=== PATIENT | female | born 1990 ===

== ENCOUNTER 2016-12-07 16:24 | Emergency (ER) | payer MEDICAID ==
[2016-12-07 17:03] VITALS: BP 128/68; PULSE 106; RESP 16; TEMP 98.4; O2SAT 97
--- NOTE | 2016-12-07 17:13 | ED PDOC ---
HPI: Abdomen Time Seen by Provider: 12/07/16 16:46 Chief Complaint (Nursing): GI Problem Chief Complaint (Provider): nausea History Per: Patient Additional Complaint(s): pt c/o nausea in the mornings for the past week. denies associated fevers, cp, sob, abd pain, v/d, urinary c/o. LMP last week was lite, previous LMP was last month. previously . Past Medical History Reviewed: Historical Data, Nursing Documentation, Vital Signs Vital Signs: Last Vital Signs Temp 98.4 F 12/07/16 16:59 Pulse 106 H 12/07/16 16:59 Resp 16 12/07/16 16:59 BP 128/68 12/07/16 16:59 Pulse Ox 97 12/07/16 16:59 - Medical History PMH: Asthma - Family History Family History: States: No Known Family Hx - Social History Current smoker - smoking cessation education provided: No Alcohol: Social Drugs: Denies - Home Medications Home Medications: Ambulatory Orders Medication Instructions Recorded Cetirizine HCl [Zyrtec] 10 mg PO DAILY PRN #30 capsule 04/26/16 Fluticasone Propionate [Flonase] 2 spr AHMET DAILY #1 bottle 04/26/16 Promethazine DM [Phenergan DM 10 ml PO Q8 PRN #120 ml 04/26/16 Syrup] Doxylamine/Pyridoxine HCl (B6) 2 each PO QPM #60 tablet. 12/07/16 [Jeffrey Quesada 10-10 mg Tablet] Multivit/Folic Acid/I 1 tab PO DAILY #30 tab 12/07/16 [ Plus] - Allergies Allergies/Adverse Reactions: Allergies Allergy/AdvReac Type Severity Reaction Status Date / Time No Known Allergies Allergy Verified 02/24/16 15:19 Review of Systems ROS Statement: Except As Marked, All Systems Reviewed And Found Negative Gastrointestinal: Positive for: Nausea Physical Exam - Reviewed Nursing Documentation Reviewed: Yes Vital Signs Reviewed: Yes - Physical Exam Appears: Positive for: Well, Non-toxic, No Acute Distress Skin: Positive for: Normal Color, Warm, DRY Cardiovascular/Chest: Positive for: Regular Rate, Rhythm Respiratory: Positive for: CNT, Normal Breath Sounds Gastrointestinal/Abdominal: Positive for: Normal Exam, Bowel Sounds, Soft. Negative for: Tenderness Back: Negative for: L CVA Tenderness, R CVA Tenderness Neurologic/Psych: Positive for: Alert, Oriented - ECG O2 Sat by Pulse Oximetry: 97 Medical Decision Making Medical Decision Making: preg pos. will give jeffrey prenatals to f/u pmd. Disposition - Clinical Impression Clinical Impression: - Patient ED Disposition Is Patient to be Admitted: No - Disposition Referrals: [facility] [Outside] Disposition: Routine/Home Disposition Time: 17:11 Condition: GOOD Prescriptions: Doxylamine/Pyridoxine HCl (B6) [Jeffrey Quesada 10-10 mg Tablet] 2 each PO QPM #60 tablet. Multivit/Folic Acid/I [ Plus] 1 tab PO DAILY #30 tab Instructions: (ED)
== END 2016-12-07 17:41 | disposition home or self-care (01) ==
LOC: SUPCPDRO 16:24 → H.ER 16:24
DX: O21.9 Vomiting of pregnancy, unspecified (principal)

== ENCOUNTER 2017-02-22 14:26 | Observation (INO) | payer MEDICAID ==
[2017-02-22] MEDS ORDERED: Sodium Chloride 0.9% 1,000 ML IV SCH (15:15)
--- NOTE | 2017-02-22 15:40 | ED PDOC ---
HPI: Abdomen <Suze Soni - Last Filed: 02/22/17 18:31> Chief Complaint (Provider): abdominal pain History Per: Patient Onset/Duration Of Symptoms: Hrs (3) Outside of [place] travel?: No Current Symptoms Are (Timing): Better Severity: Moderate Pain Scale Rating Of: 6 (8/10 prior to coming to ED) Location Of Pain/Discomfort: Diffuse, RLQ, Epigastric Quality Of Discomfort: Sharp Associated Symptoms: Back Pain. denies: Fever, Chills, Nausea, Vomiting, Diarrhea, Urinary Symptoms Exacerbating Factors: None Alleviating Factors: None Abnormal Vaginal Bleeding: No Last Menstral Period: 10/26/16 : 2 Para: 1 () Miscarriage: 0 <Isela Garcia - Last Filed: 02/22/17 18:51> Time Seen by Provider: 02/22/17 14:35 Chief Complaint (Nursing): Abdominal Pain Additional Complaint(s): Pt is 26 yo F with PMH asthma who presents today to the ED due to abdominal pain x3 hours. She is 17w0d by LMP, which was 10/26/16, she is currently . Pt denies vaginal bleeding, cramping, contractions. She reports no change in movement, states she feels fetus moving/kicking. Denies nausea, vomiting, diarrhea, changes in diet, or urinary symptoms. States the pain is 6/10 currently, was at 8/10 before and is diffuse across abdomen, with the worst pain at RLQ, states pain radiates to the side and back. Denies issues with previous or with this . (Isela Garcia) Past Medical History <Suze Soni - Last Filed: 02/22/17 18:31> - Medical History PMH: Asthma Denies: Chronic Kidney Disease - Surgical History Surgical History: No Surg Hx - Family History Family History: States: No Known Family Hx - Social History Ex-Smoker (has not smoked in the last 12 months): Yes (social) Alcohol: None Drugs: Denies <Isela Garcia - Last Filed: 02/22/17 18:51> Vital Signs: Last Vital Signs Temp 98.0 F 02/22/17 17:25 Pulse 89 02/22/17 17:25 Resp 18 02/22/17 17:25 BP 105/69 02/22/17 17:25 Pulse Ox 99 02/22/17 18:15 - Home Medications Home Medications: Ambulatory Orders Medication Instructions Recorded Cetirizine HCl [Zyrtec] 10 mg PO DAILY PRN #30 capsule 04/26/16 Fluticasone Propionate [Flonase] 2 spr AHMET DAILY #1 bottle 04/26/16 Promethazine DM [Phenergan DM 10 ml PO Q8 PRN #120 ml 04/26/16 Syrup] Doxylamine/Pyridoxine HCl (B6) 2 each PO QPM #60 tablet. 12/07/16 [Aaron Quesada 10-10 mg Tablet] Multivit/Folic Acid/I 1 tab PO DAILY #30 tab 12/07/16 [ Plus] - Allergies Allergies/Adverse Reactions: Allergies Allergy/AdvReac Type Severity Reaction Status Date / Time No Known Allergies Allergy Verified 02/24/16 15:19 Review of Systems ROS Statement: Except As Marked, All Systems Reviewed And Found Negative Cardiovascular: Positive for: Other (occasional heartburn) Gastrointestinal: Positive for: Abdominal Pain Neurological: Positive for: Dizziness (when standing up quickly, not persistent) <Isela Garcia - Last Filed: 02/22/17 18:51> Physical Exam - Physical Exam Appears: Positive for: Non-toxic, No Acute Distress Head Exam: Positive for: NORMAL INSPECTION Skin: Positive for: Warm, Dry Eye Exam: Positive for: Normal appearance, EOMI, Other (pt wearing contact lenses). Negative for: Conjunctival injection, Scleral icterus ENT: Negative for: Pharyngeal Erythema, Tonsillar Exudate Neck: Positive for: Painless ROM, Supple Cardiovascular/Chest: Positive for: Regular Rate, Rhythm. Negative for: Murmur Respiratory: Positive for: Normal Breath Sounds. Negative for: Wheezing, Respiratory Distress Gastrointestinal/Abdominal: Positive for: Bowel Sounds, Soft, Tenderness ( diffuse, more tenderness in RLQ) Back: Negative for: L CVA Tenderness, R CVA Tenderness Extremity: Positive for: Normal ROM. Negative for: Deformity Neurologic/Psych: Positive for: Alert, Oriented, Gait (normal) <Isela Garcia - Last Filed: 02/22/17 18:51> - Laboratory Results Result Diagrams: 02/22/17 15:40 08/26/17 15:40 <Suze Soni - Last Filed: 02/22/17 18:31> - Laboratory Results Result Diagrams: 02/22/17 15:40 02/22/17 15:40 - ECG O2 Sat by Pulse Oximetry: 99 <Isela Garcia - Last Filed: 02/22/17 18:51> Medical Decision Making <Suze Soni - Last Filed: 02/22/17 18:31> <Isela Garcia - Last Filed: 02/22/17 18:51> Medical Decision Makin.54p - case d/w Dr. Durant regarding US findings and concerns for early appendicitis. she will contact the cardiovascular surgical tech(s) come and see patient. 6.31p - patient seen by surgery resident. Will admit to surgery for observation. (Suze Soni) 15:00 Pt seen, examined, evaluated. -CBC -CMP -Urine dipstick -Urinalysis -NS 1L -Abdominal u/s ordered 17:45 Abdominal U/s LIVER: Measures 15.3 cm. Normal echogenicity of the liver parenchyma. No mass. No intrahepatic bile duct dilatation. GALLBLADDER: Unremarkable. No gallstones. COMMON BILE DUCT: Measures 5.0mm. No stones. No dilatation. PANCREAS: Unremarkable as visualized. No mass. No ductal dilatation. RIGHT KIDNEY: Measures 12.2cm. Normal echogenicity. No calculus, mass, or hydronephrosis. LEFT KIDNEY: Measures 12.0cm. Normal echogenicity. No calculus, mass, or hydronephrosis. SPLEEN: Normal in size and contour. No mass. AORTA: No aneurysmal dilatation. IVC: Unremarkable. OTHER FINDINGS: The right ovary is enlarged and measures 6.6 x 5.5 x 5.0 cm. There is a 4.0 x 4.0 x 4.7 cm right ovarian cyst. Also noted 1.7 x 2.0 x 2.1 cm echogenic area in the right ovary which likely represents a dermoid. The appendix is mildly distended and measures 9mm in transverse diameter. There is no evidence of fluid in right lower quadrant or abscess. IMPRESSION: 1. The appendix is prominent and measures 9 mm in transverse diameter. Findings could represent early acute appendicitis in appropriate clinical setting. No evidence of free fluid in the right lower quadrant. 2. 4.7 cm simple cyst in right ovary. ---- Call placed to general surgery. 18:30 General surg resident at bedside to evaluate pt. Will admit to general surgery service for observation and IV antibiotics. (Isela Garcia) Disposition - Patient ED Disposition Is Patient to be Admitted: Yes Doctor Will See Patient In The: Hospital - Disposition Disposition: Transfer of Care Disposition Time: 18:31 - Pt Status Changed To: Hospital Disposition Of: Observation - POA Present On Arrival: None <Suze Soni - Last Filed: 02/22/17 18:31> - Patient ED Disposition Is Patient to be Admitted: Yes - Disposition Disposition: Transfer of Care <Isela Garcia - Last Filed: 02/22/17 18:51> - Clinical Impression Clinical Impression: Abdominal pain - Disposition Condition: STABLE Forms: [facility] ([place])
[2017-02-22 15:50] LABS: BASO % 0.2 % (0.0-2.0); EOS # 0.2 K/uL (0.0-0.7); HEMATOCRIT 32.8 % (34.0-47.0); LYMPH # 1.5 K/uL (1.0-4.3); LYMPH % 16.6 % (20.0-40.0); MEAN CELL VOLUME 81.8 fl (81.0-99.0); MEAN CORPUSCULAR HEMOGLOBIN 26.9 pg (27.0-31.0); MEAN CORPUSCULAR HGB CONC 32.8 g/dL (33.0-37.0); MEAN PLATELET VOLUME 6.7 fl (7.2-11.7); MONO # 0.7 K/uL (0.0-0.8); MONO % 7.5 % (0.0-10.0); NEUT # 6.7 K/uL (1.8-7.0); NEUT % 73.7 % (50.0-75.0); RED CELL DISTRIBUTION WIDTH 17.6 % (11.5-14.5); URINE BACTERIA RARE (<OCC); URINE BILIRUBIN NEGATIVE (NEGATIVE); URINE BLOOD SMALL (NEGATIVE); URINE COLOR YELLOW (YELLOW); URINE GLUCOSE (UA) NEG (Normal); URINE KETONE NEGATIVE (NEGATIVE); URINE LEUKOCYTE ESTERASE NEG Leu/uL (Negative); URINE PROTEIN NEGATIVE (NEGATIVE); URINE UROBILINOGEN 0.2-1.0 mg/dL (0.2-1.0); WBC URINE 1 /hpf (0-5)
[2017-02-22 16:02] LABS: ALB/GLOB RATIO 1.1 (1.0-2.1); ALKALINE PHOSPHATASE 71 U/L (38-126); ALT/SGPT 19 U/L (9-52); AST/SGOT 18 U/L (14-36); BILIRUBIN,TOTAL 0.4 mg/dl (0.2-1.3); BLOOD UREA NITROGEN 6 mg/dl (7-17); CALCIUM 9.4 mg/dL (8.4-10.2); CARBON DIOXIDE 24 mmol/L (22-30); CHLORIDE 103 mmol/L (98-107); GFR AFRICAN-AMERICAN > 60; GLUCOSE,RANDOM 94 mg/dL (65-105); POTASSIUM 3.7 MMOL/L (3.6-5.0); SODIUM 136 mmol/l (132-148); TOTAL PROTEIN 7.3 G/DL (6.3-8.2)
[2017-02-22 16:05] LABS: RBC URINE 8 /hpf (0-3)
[2017-02-22 17:26] VITALS: RESP 18
--- NOTE | 2017-02-22 17:34 | US ---
HISTORY: 17w , abdominal pain COMPARISON: None. TECHNIQUE: Gaitan scale imaging was performed. FINDINGS: LIVER: Measures 15.3 cm. Normal echogenicity of the liver parenchyma. No mass. No intrahepatic bile duct dilatation. GALLBLADDER: Unremarkable. No gallstones. COMMON BILE DUCT: Measures 5.0 mm. No stones. No dilatation. PANCREAS: Unremarkable as visualized. No mass. No ductal dilatation. RIGHT KIDNEY: Measures 12.2cm. Normal echogenicity. No calculus, mass, or hydronephrosis. LEFT KIDNEY: Measures 12.0cm. Normal echogenicity. No calculus, mass, or hydronephrosis. SPLEEN: Normal in size and contour. No mass. AORTA: No aneurysmal dilatation. IVC: Unremarkable. OTHER FINDINGS: The right ovary is enlarged and measures 6.6 x 5.5 x 5.0 cm. There is a 4.0 x 4.0 x 4.7 cm right ovarian cyst. Also noted is 1.7 x 2.0 x 2.1 cm echogenic area in the right ovary which likely represents a dermoid. The appendix is mildly distended and measures 9 mm in transverse diameter. There is no evidence of fluid in the right lower quadrant or abscess. IMPRESSION: 1. The appendix is prominent and measures 9 mm in transverse diameter. Findings could represent early acute appendicitis in the appropriate clinical setting. No evidence of free fluid in the right lower quadrant or abscess. 2. 4.7 cm simple cyst in the right ovary. Important findings were discussed with Dr. Laguna in the ER on 02/22/2017 at 5:30 p.m.
--- NOTE | 2017-02-22 18:40 | CP.PCM.HP ---
History of Present Illness - History of Present Illness History of Present Illness: Surgery: Dr. Durant CC: Abd pain HPI: 26F 17 weeks w. pmh of asthma presents to ED w. acute onset abd pain beginning this afternoon. Pain was initially ilana-umbilical and migrated to RLQ as day progressed. Pain is constant, described as sharp, and waxes and wanes in severity. Pt denies any alleviating or aggravating factors. She denies F/C, no CEBALLOS/blurred vision, no CP/palpitations, no SOB/cough, no change in appetite, no N/V/D, no hematuria/dysuria, no change in urine color or odor, no vaginal bleeding or discharge. U/S done in ED showed dilated appendix of 9mm. PMH: asthma PSH: none Meds: none NKDA Social: No ETOH/tobacco/drugs Fhx: Non-contributory Present on Admission - Present on Admission Any Indicators Present on Admission: No Review of Systems - Review of Systems All systems: reviewed and no additional remarkable complaints except (HPI) Past Patient History - Infectious Disease Hx of Infectious Diseases: None - Past Social History Alcohol: None Drugs: Denies - CARDIAC Hx Cardiac Disorders: No - PULMONARY Hx Asthma: Yes - NEUROLOGICAL Hx Neurological Disorder: No - HEENT Hx HEENT Problems: No - RENAL Hx Chronic Kidney Disease: No - ENDOCRINE/METABOLIC Hx Endocrine Disorders: No - HEMATOLOGICAL/ONCOLOGICAL Hx Blood Disorders: No - INTEGUMENTARY Hx Dermatological Problems: No - MUSCULOSKELETAL/RHEUMATOLOGICAL Hx Musculoskeletal Disorders: No - GASTROINTESTINAL Hx Gastrointestinal Disorders: No - GENITOURINARY/GYNECOLOGICAL Hx Genitourinary Disorders: No Other/Comment: ovarian cyst - PSYCHIATRIC Hx Psychophysiologic Disorder: No Hx Substance Use: No - SURGICAL HISTORY Hx Surgeries: No - ANESTHESIA Hx Anesthesia: No Meds Allergies/Adverse Reactions: Allergies Allergy/AdvReac Type Severity Reaction Status Date / Time No Known Allergies Allergy Verified 02/24/16 15:19 Physical Exam - Constitutional Appears: Non-toxic, No Acute Distress - Head Exam Head Exam: ATRAUMATIC, NORMOCEPHALIC - Eye Exam Eye Exam: EOMI. absent: Scleral icterus - ENT Exam ENT Exam: Mucous Membranes Moist, Normal External Ear Exam - Neck Exam Neck exam: Positive for: Full Rom - Respiratory Exam Respiratory Exam: NORMAL BREATHING PATTERN. absent: Accessory Muscle Use, Respiratory Distress - Cardiovascular Exam Cardiovascular Exam: REGULAR RHYTHM - GI/Abdominal Exam GI & Abdominal Exam: Soft, Tenderness (RLQ). absent: Distended, Firm, Guarding , Rebound, Rigid Additional comments: No rovsing, no obturator/psoas sign - Extremities Exam Extremities exam: Negative for: calf tenderness, pedal edema - Back Exam Back exam: absent: CVA tenderness (L), CVA tenderness (R) - Neurological Exam Neurological exam: Alert, Oriented x3 - Psychiatric Exam Psychiatric exam: Normal Affect, Normal Mood - Skin Skin Exam: Dry, Normal Color, Warm Results - Vital Signs Recent Vital Signs: Last Vital Signs Temp 98.0 F 02/22/17 17:25 Pulse 89 02/22/17 17:25 Resp 18 02/22/17 17:25 BP 105/69 02/22/17 17:25 Pulse Ox 99 02/22/17 18:15 - Labs Result Diagrams: 02/22/17 15:40 02/22/17 15:40 Labs: Laboratory Results - last 24 hr 02/22/17 02/22/17 02/22/17 15:40 15:40 15:40 WBC 9.0 RBC 4.00 Hgb 10.8 L Hct 32.8 L MCV 81.8 MCH 26.9 L MCHC 32.8 L RDW 17.6 H Plt Count 312 MPV 6.7 L Neut % (Auto) 73.7 Lymph % (Auto) 16.6 L [place] % (Auto) 7.5 Eos % (Auto) 2.0 Baso % (Auto) 0.2 Neut # 6.7 Lymph # 1.5 [place] # 0.7 Eos # 0.2 Baso # 0.0 Sodium 136 Potassium 3.7 Chloride 103 Carbon Dioxide 24 Anion Gap 13 BUN 6 L Creatinine 0.5 L Est GFR ( Amer) > 60 Est GFR (Non-Af Amer) > 60 Random Glucose 94 Calcium 9.4 Total Bilirubin 0.4 AST 18 ALT 19 Alkaline Phosphatase 71 Total Protein 7.3 Albumin 3.9 Globulin 3.4 Albumin/Globulin Ratio 1.1 Urine Color Yellow Urine Clarity Slighty-cloudy Urine pH 5.0 Ur Specific [place] 1.029 Urine Protein Negative Urine Glucose (UA) Neg Urine Ketones Negative Urine Blood Small Urine Nitrate Negative Urine Bilirubin Negative Urine Urobilinogen 0.2-1.0 Ur Leukocyte Esterase Neg Urine RBC (Auto) 8 H Urine Microscopic WBC 1 Ur Squamous Epith Cells 3 Urine Bacteria Rare - Imaging and Cardiology US - abdomen Status: Image reviewed by me, Report reviewed by me Assessment & Plan - Assessment and Plan (Free Text) Assessment: 26F w. abd pain, R/O appendicitis -zosyn -IVF -tylenol/motrin for pain -regular diet, NPO after midnight -AM labs -serial abd exams -SCDs -d/w attending Zemaitis PGY3
[2017-02-22] MEDS: Sodium Chloride 0.9% 1,000 ML IV SCH (20:31)
[2017-02-22] MEDS: Piperacillin/Tazobact 3.375 GM in Sodium Chloride 0.9% 100 ML IVPB SCH (21:46)
[2017-02-23 03:56] VITALS: O2SAT 98
[2017-02-23] MEDS: Piperacillin/Tazobact 3.375 GM in Sodium Chloride 0.9% 100 ML IVPB SCH (04:02)
[2017-02-23] MEDS: Sodium Chloride 0.9% 1,000 ML IV SCH (04:04)
[2017-02-23 07:23] LABS: HEMATOCRIT 28.8 % (34.0-47.0); MEAN CELL VOLUME 81.2 fl (81.0-99.0); MEAN CORPUSCULAR HEMOGLOBIN 27.5 pg (27.0-31.0); MEAN CORPUSCULAR HGB CONC 33.9 g/dL (33.0-37.0); RED CELL DISTRIBUTION WIDTH 17.2 % (11.5-14.5); WHITE BLOOD COUNT 7.2 K/uL (4.8-10.8)
[2017-02-23 07:36] LABS: BLOOD UREA NITROGEN 5 mg/dl (7-17); CALCIUM 8.5 mg/dL (8.4-10.2); CARBON DIOXIDE 23 mmol/L (22-30); CHLORIDE 107 mmol/L (98-107); GFR AFRICAN-AMERICAN > 60; GLUCOSE,RANDOM 84 mg/dL (65-105); POTASSIUM 4.1 MMOL/L (3.6-5.0); SODIUM 138 mmol/l (132-148)
[2017-02-23 07:46] LABS: PARTIAL THROMBOPLASTIN TIME 29.1 Seconds (25.6-37.1)
--- NOTE | 2017-02-23 08:02 | CP.PCM.PN ---
Subjective - Date & Time of Evaluation Date of Evaluation: 02/23/17 Time of Evaluation: 07:59 - Subjective Subjective: Surgery: Dr. Durant Pt seen and examined. Resting comfortably in bed. RLQ significantly improved compared to yesterday. No F/C. No N/V/D. Pt would like to eat. Objective - Vital Signs/Intake and Output Vital Signs (last 24 hours): Temp Pulse Resp BP Pulse Ox 97.9 F 87 18 106/68 98 02/23/17 04:05 02/23/17 01:00 02/23/17 01:00 02/23/17 01:00 02/23/17 01:00 - Medications Medications: Current Medications Acetaminophen (Tylenol 325mg Tab) 650 mg PO Q6 PRN PRN Reason: Fever >100.4 F Sodium Chloride (Sodium Chloride 0.9%) 1,000 mls @ 1,000 mls/hr IV .Q1H [facility] Stop: 02/23/17 15:07 Last Admin: 02/22/17 15:42 Dose: 1,000 mls/hr Sodium Chloride (Sodium Chloride 0.9%) 1,000 mls @ 140 mls/hr IV .Q7H9M [facility] Stop: 02/23/17 18:48 Last Admin: 02/23/17 04:04 Dose: 140 mls/hr Piperacillin Sod/Tazobactam (Sod 3.375 gm/ Sodium Chloride) 100 mls @ 100 mls/ hr IVPB Q6 [facility] Last Admin: 02/23/17 04:02 Dose: 100 mls/hr Ibuprofen (Motrin Tab) 600 mg PO Q6 PRN PRN Reason: Pain, moderate (4-7) Ondansetron HCl (Zofran Inj) 4 mg IVP Q4 PRN PRN Reason: Nausea/Vomiting - Labs Labs: 02/23/17 05:30 02/23/17 05:30 PT 12.0 Seconds (9.8-13.1) 02/23/17 05:30 INR 1.2 (0.9-1.2) 02/23/17 05:30 APTT 29.1 Seconds (25.6-37.1) 02/23/17 05:30 - Constitutional Appears: Non-toxic, No Acute Distress - Head Exam Head Exam: ATRAUMATIC, NORMOCEPHALIC - Eye Exam Eye Exam: EOMI - ENT Exam ENT Exam: Mucous Membranes Moist - Neck Exam Neck Exam: Full ROM - Respiratory Exam Respiratory Exam: NORMAL BREATHING PATTERN. absent: Accessory Muscle Use, Respiratory Distress - GI/Abdominal Exam GI & Abdominal Exam: Soft, Tenderness (mild RLQ). absent: Distended, Firm, Guarding, Rigid, Rebound - Extremities Exam Extremities Exam: absent: Calf Tenderness, Pedal Edema - Neurological Exam Neurological Exam: Alert, Awake, Oriented x3 - Psychiatric Exam Psychiatric exam: Normal Affect, Normal Mood - Skin Skin Exam: Dry, Normal Color, Warm Assessment and Plan - Assessment and Plan (Free Text) Assessment: 26F w. abd pain r/o appendicitis -pain improved, wbc trending down -regular diet -pt is clear for D/C -Augmentin for 1 week -if symptoms worsen, pt is to return to ED -d/w attending Zemaitis PGY3
[2017-02-23 08:22] VITALS: BP 92/64; PULSE 90; TEMP 98.5
--- NOTE | 2017-02-23 09:41 | CP.PCM.DIS ---
Provider - Provider Date of Admission: 02/22/17 18:30 Attending physician: Luis Eduardo Durant MD Time Spent in preparation of Discharge (in minutes): 15 Diagnosis - Discharge Diagnosis (1) Abdominal pain Status: Acute Priority: High Onset Date: ~02/22/17 Comment: ultrasound indicates R ovarian cyst and prominence of appendix 9mm. (2) Status: Acute Priority: Medium Comment: 17 weeks by history Hospital Course - Lab Results Lab Results: Most Recent Lab Values WBC 7.2 K/uL (4.8-10.8) 02/23/17 05:30 RBC 3.54 Mil/uL (3.80-5.20) L 02/23/17 05:30 Hgb 9.8 g/dL (12.0-16.0) L 02/23/17 05:30 Hct 28.8 % (34.0-47.0) L 02/23/17 05:30 MCV 81.2 fl (81.0-99.0) 02/23/17 05:30 MCH 27.5 pg (27.0-31.0) 02/23/17 05:30 MCHC 33.9 g/dL (33.0-37.0) 02/23/17 05:30 RDW 17.2 % (11.5-14.5) H 02/23/17 05:30 Plt Count 260 K/uL (130-400) 02/23/17 05:30 MPV 6.7 fl (7.2-11.7) L 02/22/17 15:40 Neut % (Auto) 73.7 % (50.0-75.0) 02/22/17 15:40 Lymph % (Auto) 16.6 % (20.0-40.0) L 02/22/17 15:40 [place] % (Auto) 7.5 % (0.0-10.0) 02/22/17 15:40 Eos % (Auto) 2.0 % (0.0-4.0) 02/22/17 15:40 Baso % (Auto) 0.2 % (0.0-2.0) 02/22/17 15:40 Neut # 6.7 K/uL (1.8-7.0) 02/22/17 15:40 Lymph # 1.5 K/uL (1.0-4.3) 02/22/17 15:40 [place] # 0.7 K/uL (0.0-0.8) 02/22/17 15:40 Eos # 0.2 K/uL (0.0-0.7) 02/22/17 15:40 Baso # 0.0 K/uL (0.0-0.2) 02/22/17 15:40 PT 12.0 Seconds (9.8-13.1) 02/23/17 05:30 INR 1.2 (0.9-1.2) 02/23/17 05:30 APTT 29.1 Seconds (25.6-37.1) 02/23/17 05:30 Sodium 138 mmol/l (132-148) 02/23/17 05:30 Potassium 4.1 MMOL/L (3.6-5.0) 02/23/17 05:30 Chloride 107 mmol/L (98-107) 02/23/17 05:30 Carbon Dioxide 23 mmol/L (22-30) 02/23/17 05:30 Anion Gap 13 (10-20) 02/23/17 05:30 BUN 5 mg/dl (7-17) L 02/23/17 05:30 Creatinine 0.5 mg/dL (0.7-1.2) L 02/23/17 05:30 Est GFR ( Amer) > 60 02/23/17 05:30 Est GFR (Non-Af Amer) > 60 02/23/17 05:30 Random Glucose 84 mg/dL (65-105) 02/23/17 05:30 Calcium 8.5 mg/dL (8.4-10.2) 02/23/17 05:30 Total Bilirubin 0.4 mg/dl (0.2-1.3) 02/22/17 15:40 AST 18 U/L (14-36) 02/22/17 15:40 ALT 19 U/L (9-52) 02/22/17 15:40 Alkaline Phosphatase 71 U/L (38-126) 02/22/17 15:40 Total Protein 7.3 G/DL (6.3-8.2) 02/22/17 15:40 Albumin 3.9 g/dL (3.5-5.0) 02/22/17 15:40 Globulin 3.4 gm/dL (2.2-3.9) 02/22/17 15:40 Albumin/Globulin Ratio 1.1 (1.0-2.1) 02/22/17 15:40 Urine Color Yellow (YELLOW) 02/22/17 15:40 Urine Clarity Slighty-cloudy (Clear) 02/22/17 15:40 Urine pH 5.0 (5.0-8.0) 02/22/17 15:40 Ur Specific [place] 1.029 (1.003-1.030) 02/22/17 15:40 Urine Protein Negative mg/dL (NEGATIVE) 02/22/17 15:40 Urine Glucose (UA) Neg mg/dL (Normal) 02/22/17 15:40 Urine Ketones Negative mg/dL (NEGATIVE) 02/22/17 15:40 Urine Blood Small (NEGATIVE) 02/22/17 15:40 Urine Nitrate Negative (NEGATIVE) 02/22/17 15:40 Urine Bilirubin Negative (NEGATIVE) 02/22/17 15:40 Urine Urobilinogen 0.2-1.0 mg/dL (0.2-1.0) 02/22/17 15:40 Ur Leukocyte Esterase Neg [place]/uL (Negative) 02/22/17 15:40 Urine RBC (Auto) 8 /hpf (0-3) H 02/22/17 15:40 Urine Microscopic WBC 1 /hpf (0-5) 02/22/17 15:40 Ur Squamous Epith Cells 3 /hpf (0-5) 02/22/17 15:40 Urine Bacteria Rare (<OCC) 02/22/17 15:40 - Hospital Course Hospital Course: Admitted as r/o early appendicitis. Abdominal pain improved overnight with IV antibiotic, WBC decreased, tolerating regular diet - Date & Time of H&P Date of H&P: 02/22/17 Time of H&P: 19:00 Discharge Exam - Head Exam Head Exam: ATRAUMATIC, NORMOCEPHALIC - ENT Exam ENT Exam: Mucous Membranes Moist, Normal Oropharynx - Neck Exam Neck exam: Full Rom - Respiratory Exam Respiratory Exam: NORMAL BREATHING PATTERN, UNREMARKABLE - Cardiovascular Exam Cardiovascular Exam: REGULAR RHYTHM - GI/Abdominal Exam GI & Abdominal Exam: Normal Bowel Sounds, Soft Additional comments: , mild RLQ tenderness without guarding Discharge Plan - Discharge Medications Prescriptions: Amoxicillin/Clavulanate [Augmentin 500 MG-125 MG] 1 tab PO Q12 #14 tab - Follow Up Plan Condition: GUARDED Disposition: HOME/ ROUTINE Instructions: Abdominal Pain (ED), Acute Abdominal Pain (DC), Acute Abdominal Pain (GEN) Additional Instructions: Take antibiotics as instructed. Follow up w. PMD in 1 week. Return to ED if symptoms worsen. Referrals: Luis Eduardo Durant MD [Staff Provider] -
== END 2017-02-23 11:26 | disposition home or self-care (01) ==
LOC: H.ER 14:26 → H.ERHOLD 18:30 → H.MEDSURG1 20:13
PROVIDERS: ADMIT Specialist; ATTEND Specialist
DX: O26.892 Other specified pregnancy related conditions, second trimester (principal); Z3A.17 17 weeks gestation of pregnancy; O99.512 Diseases of the respiratory system complicating pregnancy, second trimester; J45.909 Unspecified asthma, uncomplicated; N83.201 Unspecified ovarian cyst, right side; Z87.891 Personal history of nicotine dependence
CPT/HCPCS: 36415; 76700; 80048; 80053; 81003; 85025; 85027; 85610; 85730; 96360; 99284; G0378; J2543; J7040

== ENCOUNTER 2017-06-12 20:10 | Emergency (ER) | payer MEDICAID ==
[2017-06-12 21:27] VITALS: BMI 36.4
[2017-06-12 21:57] LABS: URINE BILIRUBIN NEGATIVE (NEGATIVE); URINE BLOOD SMALL (NEGATIVE); URINE COLOR YELLOW (YELLOW); URINE GLUCOSE (UA) NEG (Normal); URINE KETONE NEGATIVE (NEGATIVE); URINE LEUKOCYTE ESTERASE NEG Leu/uL (Negative); URINE PROTEIN NEGATIVE (NEGATIVE); URINE UROBILINOGEN 0.2-1.0 mg/dL (0.2-1.0); WBC URINE 5 /hpf (0-5)
[2017-06-12 21:59] LABS: RBC URINE 8 /hpf (0-3)
[2017-06-13 04:39] VITALS: BP 111/69; PULSE 96
--- NOTE | 2017-06-13 08:36 | OBHP ---
Datetime: 06/12/2017 20:52 IP Adm Impression: , intrauterine IP Admit Plan: Discharge home Admit Comment, IP Provider: 27 yo at 32.5 weeks GA based on first trimester US as per pt, no t c/w LMP, EDC on 08/02/17 presents to [facility] c/o vaginal spotting about 2 hours ago. Pt reports to have coitus last night. Reports +fm. Denies LOF or CTX. Denies abdominal trauma, dysuria, urinary frequenc y, nausea, vomiting, fever, chills. 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 Abnormal PAP in 2014. hx ovarian cyst. Pmhx: hx childhood asthma pshx: denies social hx: denies ETOH, tobacco or recreational drug use Meds: PNV allergies: NKDA Assessment: 27 yo IUP @32.5 weeks GA, reports vaginal spotting. Plan: Continuous heart tracing UA SVE: no vaginal bleeding or clots seen, cervix is closed. Case d/w manager media relations OB hospitalist Dr. Nataly Michael, PGY1 Addendum: UA is neg for nitrate and leukocytes. re-assuring heart tracing. Advised to go to tomorrow's appointment w/ her obsterician. Discharge to home. labor precaution and [facility] precation given. All the questions and concerns were answered. Case d/w on-call OB hospitalist Dr. Ingram. Sultan Michael, PGY1 Extremities - PN: Normal Abdomen - PN: Normal Back - PN: Normal Lungs - PN: Normal Heart - PN: Normal Neurologic - PN: Normal HEENT - PN: Normal General - PN: Normal FHR - Baseline A Provider: 140s Membranes, Provider: Intact Comments, ACOG Physical Exam: SVE: closed cervix, no vaginal bleeding or clots seen. IP Hx Assessment: No care chart available at this visit EGA AdmitDate IP: 32.5 Vital Signs Provider: Reviewed IP Chief Complaint: Vaginal bleeding NICHD Variability Prov Fetus A: Moderate 6-25bpm NICHD Accel Fetus A IP Provider: 10X10 FHR Category Provider Fetus A: Category I NICHD Decel Fetus A IP Provider: None Genitourinary Exam: Normal
== END 2017-06-12 22:15 | disposition home or self-care (01) ==
LOC: H.EROB2 20:10
DX: O26.853 Spotting complicating pregnancy, third trimester (principal); Z3A.32 32 weeks gestation of pregnancy

== ENCOUNTER 2018-01-13 12:43 | Emergency (ER) | payer MEDICAID ==
[2018-01-13 12:43] VITALS: BMI 36.4
[2018-01-13 13:33] VITALS: TEMP 98.4
--- NOTE | 2018-01-13 13:53 | ED PDOC ---
HPI: General Adult Time Seen by Provider: 01/13/18 13:45 Chief Complaint (Nursing): Female Genitourinary Chief Complaint (Provider): Upper abdominal pain since this morning History Per: Patient History/Exam Limitations: no limitations Onset/Duration Of Symptoms: Hrs Have you had recent travel within the past 21 days to any of the following countries: [place], [place], [place] or [place]?: No Current Symptoms Are (Timing): Still Present Severity: Mild Additional Complaint(s): 27 yo female with history of ovarian cysts and asthma presents with upper abdominal pain since this morning. Pt is 5 months post- and reports normal menses. Pt states her menses was a week ago. Pt also reports dysuria and suprapubic discomfort when urinating. Pt states she saw some blood when she cleaned herself after using the restroom. No fever/chills. No N/V/D. Pt did not take anything for pain and does not want anything in ER Past Medical History Reviewed: Historical Data, Nursing Documentation, Vital Signs Vital Signs: Last Vital Signs Temp 98.4 F 01/13/18 13:30 Pulse 98 H 01/13/18 13:30 Resp 18 01/13/18 13:30 BP 102/68 01/13/18 13:30 Pulse Ox 99 01/13/18 13:54 - Medical History PMH: Asthma Denies: HIV, Chronic Kidney Disease - Surgical History Surgical History: No Surg Hx - Family History Family History: States: No Known Family Hx - Home Medications Home Medications: Ambulatory Orders Medication Instructions Recorded Multivit/Folic Acid/I 1 tab PO DAILY #30 tab 12/07/16 [ Plus] Amoxicillin/Clavulanate [Augmentin 1 tab PO Q12 #14 tab 02/23/17 500 MG-125 MG] Ciprofloxacin [Cipro] 500 mg PO BID #10 tab 01/13/18 - Allergies Allergies/Adverse Reactions: Allergies Allergy/AdvReac Type Severity Reaction Status Date / Time No Known Allergies Allergy Verified 02/24/16 15:19 Review of Systems ROS Statement: Except As Marked, All Systems Reviewed And Found Negative Constitutional: Negative for: Fever, Chills Gastrointestinal: Positive for: Abdominal Pain. Negative for: Nausea, Vomiting , Diarrhea Genitourinary Female: Positive for: Dysuria. Negative for: Frequency, Incontinence Physical Exam - Reviewed Nursing Documentation Reviewed: Yes Vital Signs Reviewed: Yes - Physical Exam Appears: Positive for: Well, Non-toxic, No Acute Distress Head Exam: Positive for: ATRAUMATIC, NORMAL INSPECTION, NORMOCEPHALIC Skin: Positive for: Normal Color, Warm, DRY Eye Exam: Positive for: Normal appearance ENT: Positive for: Normal ENT Inspection Neck: Positive for: Normal, Painless ROM Cardiovascular/Chest: Positive for: Regular Rate, Rhythm Respiratory: Positive for: CNT, Normal Breath Sounds Gastrointestinal/Abdominal: Positive for: Normal Exam, Soft. Negative for: Tenderness Back: Positive for: Normal Inspection Extremity: Positive for: Normal ROM Neurologic/Psych: Positive for: Alert, Oriented - Laboratory Results Result Diagrams: 01/13/18 14:32 01/13/18 14:32 - ECG O2 Sat by Pulse Oximetry: 99 Medical Decision Making Medical Decision Making: UTI - Labs normal. Pt did not want IV or IV fluids Preg 9-) Disposition - Clinical Impression Clinical Impression: UTI (urinary tract infection) - Patient ED Disposition Is Patient to be Admitted: No Counseled Patient/Family Regarding: Diagnosis - Disposition Disposition: Routine/Home Disposition Time: 15:01 Condition: GOOD Prescriptions: Ciprofloxacin [Cipro] 500 mg PO BID #10 tab Instructions: Urinary Tract Infections in Adults Forms: [facility] (Vietnamese)
[2018-01-13] MEDS: Sodium Chloride 0.9% 1,000 ML IV STA ×2 (14:05→14:33)
[2018-01-13 14:36] LABS: BASO % 0.5 % (0.0-2.0); EOS # 0.2 K/uL (0.0-0.7); EOS % 1.9 % (0.0-4.0); HEMOGLOBIN 11.4 g/dL (12.0-16.0); LYMPH # 1.5 K/uL (1.0-4.3); LYMPH % 16.8 % (20.0-40.0); MEAN CORPUSCULAR HEMOGLOBIN 25.4 pg (27.0-31.0); MEAN CORPUSCULAR HGB CONC 32.6 g/dL (33.0-37.0); MEAN PLATELET VOLUME 6.9 fl (7.2-11.7); MONO # 0.4 K/uL (0.0-0.8); MONO % 4.4 % (0.0-10.0); NEUT # 6.8 K/uL (1.8-7.0); NEUT % 76.4 % (50.0-75.0); RBC 4.5 Mil/uL (3.80-5.20); RED CELL DISTRIBUTION WIDTH 16.3 % (11.5-14.5); WHITE BLOOD COUNT 8.9 K/uL (4.8-10.8)
[2018-01-13 14:45] LABS: ALB/GLOB RATIO 1.2 (1.0-2.1); ALBUMIN 4.3 g/dL (3.5-5.0); ALT/SGPT 17 U/L (9-52); AST/SGOT 19 U/L (14-36); BLOOD UREA NITROGEN 8 mg/dl (7-17); GFR AFRICAN-AMERICAN > 60; GFR NON-AFRICAN AMERICAN > 60; LIPASE 54 U/L (23-300)
[2018-01-13 14:49] LABS: SQUAMOUS EPITHIAL 9 /hpf (0-5); URINE AMORPHOUS SEDIMENT RARE /ul (<OCC); URINE BILIRUBIN NEGATIVE (NEGATIVE); URINE BLOOD LARGE (NEGATIVE); URINE CLARITY CLOUDY (Clear); URINE COLOR YELLOW (YELLOW); URINE GLUCOSE (UA) NEG (Normal); URINE LEUKOCYTE ESTERASE LARGE Leu/uL (Negative); URINE PROTEIN 100 mg/dL (NEGATIVE); URINE UROBILINOGEN 0.2-1.0 mg/dL (0.2-1.0)
[2018-01-13 19:11] VITALS: BP 107/74; PULSE 84; RESP 15; O2SAT 100
== END 2018-01-13 19:11 | disposition home or self-care (01) ==
LOC: H.ER 12:43
DX: N39.0 Urinary tract infection, site not specified (principal)

== ENCOUNTER 2018-11-25 14:58 | Emergency (ER) | payer MEDICAID ==
[2018-11-25 14:58] VITALS: BMI 36.4
[2018-11-25 15:14] VITALS: BP 94/65; PULSE 94; RESP 16; TEMP 98.6; O2SAT 100
[2018-11-25] MEDS ORDERED: Lidocaine 5% Patch TD STA (15:31)
--- NOTE | 2018-11-25 15:43 | ED PDOC ---
HPI: Back Time Seen by Provider: 11/25/18 15:21 Chief Complaint (Nursing): Back Pain Chief Complaint (Provider): Back Pain History Per: Patient History/Exam Limitations: no limitations Onset/Duration Of Symptoms: Other (3 weeks) Additional Complaint(s): 28 y/o female presents to the ED complaining of back pain thats been ongoing for 3 weeks. Patient states the pain is midline radiating to lower back. She reports the pain comes and goes but over the last week it has been constant. Patient states over the last couple of days she has been having pain when she tries to sleep and is worse with movement. Patient went to her PMD last week and was prescribed Naproxen and muscle relaxer but is unsure which one, without any relief. Patient denies numbness, weakness, bowl movement, urine continence, retention, fever, night sweats, intentional weight loss, abdominal pain, urinary symptoms, or any vaginal symptoms. PMD: Steven Kearns ([place]) Past Medical History Reviewed: Historical Data, Nursing Documentation, Vital Signs Vital Signs: Last Vital Signs Temp 98.6 F 11/25/18 15:11 Pulse 94 H 11/25/18 15:11 Resp 16 11/25/18 15:11 BP 94/65 L 11/25/18 15:11 Pulse Ox 100 11/25/18 15:11 Primary Care Provider: Dylan Clancy - Medical History PMH: Asthma Denies: HIV, Chronic Kidney Disease - Surgical History Surgical History: No Surg Hx - Family History Family History: States: No Known Family Hx - Social History Current smoker - smoking cessation education provided: No - Home Medications Home Medications: Ambulatory Orders Medication Instructions Recorded Multivit/Folic Acid/I 1 tab PO DAILY #30 tab 12/07/16 [ Plus] Amoxicillin/Clavulanate [Augmentin 1 tab PO Q12 #14 tab 02/23/17 500 MG-125 MG] Ciprofloxacin [Cipro] 500 mg PO BID #10 tab 01/13/18 Lidocaine 5% [Lidoderm] 1 ea TD DAILY PRN #20 patch 11/25/18 Metaxalone [Skelaxin] 800 mg PO TID PRN #15 tablet 11/25/18 traMADol [Ultram] 50 mg PO TID PRN #15 tab 11/25/18 - Allergies Allergies/Adverse Reactions: Allergies Allergy/AdvReac Type Severity Reaction Status Date / Time No Known Allergies Allergy Verified 11/25/18 15:11 Review of Systems ROS Statement: Except As Marked, All Systems Reviewed And Found Negative Constitutional: Negative for: Fever, Sweats, Weakness, Weight loss Gastrointestinal: Negative for: Abdominal Pain, Rectal Pain Genitourinary Female: Negative for: Dysuria, Frequency, Incontinence, Hematuria, Vaginal Discharge, Vaginal Bleeding Musculoskeletal: Positive for: Back Pain (lower) Neurological: Negative for: Weakness, Numbness Physical Exam - Reviewed Nursing Documentation Reviewed: Yes Vital Signs Reviewed: Yes - Physical Exam Appears: Positive for: Non-toxic, In Acute Distress (Mild) Head Exam: Positive for: ATRAUMATIC, NORMOCEPHALIC Skin: Positive for: Warm, Dry Eye Exam: Positive for: EOMI, PERRL Neck: Positive for: Painless ROM, Supple Cardiovascular/Chest: Positive for: Regular Rate, Rhythm. Negative for: Murmur Respiratory: Positive for: Normal Breath Sounds. Negative for: Respiratory Distress Gastrointestinal/Abdominal: Positive for: Normal Exam, Soft. Negative for: Tenderness Back: Positive for: Normal Inspection, Vertebral Tenderness (Tenderness to palpation at midline and paraspinal lumbar area.), Other (No deformity. No step off.) Extremity: Positive for: Normal ROM, Other (No SI joint tender to palpation. Negative bilateral straight leg raises. Light tought intact bilateral lower extremities. Straight 5/5 bilateral extremities.) Lymphatic: Negative for: Adenopathy Neurological/Psych: Positive for: Awake, Alert. Negative for: Motor/Sensory Deficits - ECG O2 Sat by Pulse Oximetry: 100 Medical Decision Making Medical Decision Making: Time:1529 Impression: Lower back pain Differential: Muscle strain, herniated disk, loumbho. Plan: -ED urine -Flexeril 10mg PO -Lidoderm -Toradol 30mg -Tylenol 325mg -X-ray Scribe Attestation: Documented by Katie North, acting as a scribe for Makenzie Cardenas Provider Scribe Attestation: All medical record entries made by the Scribe were at my direction and personally dictated by me. I have reviewed the chart and agree that the record accurately reflects my personal performance of the history, physical exam, medical decision making, and the department course for this patient. I have also personally directed, reviewed, and agree with the discharge instructions and disposition. Time: 1642 -- XR demonstrate no fracture or dislocation. Discussed with patient findings. Will prescribe different muscle relaxant, lidoderm patch and tramadol for pain control. Patient also advised to start physical therapy and follow up with PMD. Scribe Attestation: Documented by America Klein, acting as a scribe for Makenzie Mitchell MD. Provider Scribe Attestation: All medical record entries made by the Scribe were at my direction and personally dictated by me. I have reviewed the chart and agree that the record accurately reflects my personal performance of the history, physical exam, medical decision making, and the department course for this patient. I have also personally directed, reviewed, and agree with the discharge instructions and disposition. Disposition - Clinical Impression Clinical Impression: Low back pain Counseled Patient/Family Regarding: Studies Performed, Diagnosis, Need For Followup, Rx Given (appropriate use and risks of narcotic medications discussed) - Disposition Referrals: Giancarlo Lopez MD [Staff Provider] - (CALL TO START PHYSICAL THERAPY SOON POSSIBLE. (PLEASE REFER TO YOUR INSURANCE TO SEE IF YOU NEED TO VISIT YOUR PRIMARY FIRST.)) Disposition: Routine/Home Disposition Time: 16:42 Condition: STABLE Prescriptions: Lidocaine 5% [Lidoderm] 1 ea TD DAILY PRN #20 patch PRN Reason: PAIN Metaxalone [Skelaxin] 800 mg PO TID PRN #15 tablet PRN Reason: muscle tension traMADol [Ultram] 50 mg PO TID PRN #15 tab PRN Reason: SEVERE PAIN ONLY Instructions: Low Back Pain (DC), Back Precautions Forms: [email or web address] (Azerbaijani), [facility] ED School/Work Excuse, Opioid Discharge Information
[2018-11-25] MEDS ORDERED: Lidocaine 5% Patch TD ONE (16:58)
--- NOTE | 2018-11-25 17:12 | RAD ---
Date of service: 11/25/2018 PROCEDURE: Radiographs of the Lumbar Spine. HISTORY: Low back pain COMPARISON: No prior. TECHNIQUE: 5 views obtained. FINDINGS: BONES: No acute compression fractures nor retropulsed fragments. Vertebral bodies exhibit normal stature. Vertebral bodies and facets normally aligned. DISC SPACES: Disc space heights maintained. OTHER FINDINGS: None. IMPRESSION: No acute fractures.
== END 2018-11-25 16:52 | disposition home or self-care (01) ==
LOC: H.ER 14:58
DX: M54.5 Low back pain (principal)
CPT/HCPCS: 72100; 81025; 96372; 99283; J1885